=== PATIENT | female | born 1955 | race Caucasian/White ===

== ENCOUNTER 2017-06-15 10:42 | Day surgery (SDC) | payer BC ==
[~2017-06-15 10:42] MED LIST: Buffered Lidocaine 0.9% SYRIN* 5 ML/SYR SYRINGE INTRADERM ONE; Famotidine IV* 10 MG/ML 2 ML (20 mg) IV ONE; Famotidine IV* 10 MG/ML 2 ML (20 mg) ONE
[2017-06-15] MEDS ORDERED: Midazolam* 1 MG/ML 2 ML VIAL (2 MG) ONE (12:01)
[2017-06-15] MEDS ORDERED: fentaNYL* 50 MCG/ML 2 ML VIAL (100 MCG VIAL) ONE (12:01)
[2017-06-15] MEDS ORDERED: Bupivacaine 0.25% SDV* 30 ML ONE ×2 (13:07→14:15)
[2017-06-15] MEDS ORDERED: Acetaminophen TAB* 325 MG PO PRN (14:44)
[2017-06-15] MEDS ORDERED: oxyCODONE TAB* 5 MG TAB PO PRN (14:44)
[2017-06-15] MEDS ORDERED: Naloxone* 0.4 MG/ML 1 ML VIAL IV PRN (14:44)
[2017-06-15] MEDS ORDERED: DiMENhydriNATE IV* 50 MG/ML VIAL IV PUSH PRN (14:44)
[2017-06-15] MEDS ORDERED: Propofol* 10 MG/ML 20 ML BTL IV PUSH ONE (14:59)
[2017-06-15] MEDS ORDERED: Ondansetron INJ* 2 MG/ML VIAL ONE (14:59)
[2017-06-15] MEDS ORDERED: Lidocaine 2% PF * 5 ML VIAL ONE (14:59)
[2017-06-15] MEDS ORDERED: Ketorolac INJ* 30 MG/ML 1 ML VIAL ONE (14:59)
[2017-06-15 15:19] VITALS: BP 119/81
--- NOTE | 2017-06-16 05:07 | OP ---
DATE OF OPERATION: 06/15/17 [facility] DATE OF : 59 SURGEON: Gavino Alvarez MD [employer] ASSEMBLY SUPERVISOR: None. ANESTHESIOLOGIST: Dr. Joseph. ANESTHESIA: Local MAC. PRE-OP DIAGNOSIS: Right carpal tunnel syndrome. POST-OP DIAGNOSIS: Right carpal tunnel syndrome. OPERATIVE PROCEDURE: Right open carpal tunnel release. INDICATIONS: Jessy has had progressive disease. We have talked about risks and benefits. She wanted to proceed. ESTIMATED BLOOD LOSS: 2 mL. COMPLICATIONS: None. FINDINGS: As expected. DESCRIPTION OF PROCEDURE: Jessy was seen in the preoperative holding area. The correct side, site, and the procedure were identified. We came back to the operating room, where the arm was prepped and draped in the usual fashion. A time- out was performed. I began by making 2 to 3 cm incision in a standard location for an open carpal tunnel release. Dissection was carried down through the subcutaneous tissue and palmar fascia. The transverse carpal ligament was visualized and released just off the radial aspect of the hook of the hamate and the release was completed distally. Proximally the fascia and subcutaneous tissue was released and retracted volarly and ulnarly with the Zak retractor and then under direct visualization, the remainder of the transverse carpal ligament was released to a level several centimeters proximal to the wrist flexion crease. I then checked the decompression. There was absolutely no compression on the nerve. The wound was irrigated and the skin was closed with 4-0 nylon suture. I had injected 0.25% plain Marcaine prior to beginning the surgery. The wound was dressed with Xeroform, 4x4 and sterile Webril and an Iain bandage. Tourniquet was deflated and she was taken to the recovery room in stable condition. [id number]/[facility] #: [id number] MTDD
== END 2017-06-15 15:40 | disposition home or self-care (01) ==
LOC: OREAST 10:42
PROVIDERS: ATTEND Orthopaedic Surgery Hand Surgery
DX: G56.01 Carpal tunnel syndrome, right upper limb (principal); F17.200 Nicotine dependence, unspecified, uncomplicated; R05 Cough; K21.9 Gastro-esophageal reflux disease without esophagitis
CPT/HCPCS: J1885; J2250; J2405; J2704; J3010

== ENCOUNTER 2018-08-02 07:18 | Day surgery (SDC) | payer BC, OTHER ==
[~2018-08-02 07:18] MED LIST changes: -Buffered Lidocaine 0.9% SYRIN* 5 ML/SYR SYRINGE INTRADERM ONE; +Buffered Lidocaine 1% SYRIN* 1 ML/SYRINGE INTRADERM ONE; +Dexamethasone TAB* 4 MG PO ONE; +DiMENhydriNATE IV* 50 MG/ML VIAL IV PUSH PRN; -Famotidine IV* 10 MG/ML 2 ML (20 mg) ONE; +Lactated Ringers 1000 ML Bag* 1,000 ML IV SCH; +Naloxone* 0.4 MG/ML 1 ML VIAL IV PRN; +Ondansetron TAB* 4 MG PO ONE; +PROCHLORPERAZINE INJ 5 MG/ML 2 ML VIAL IV PRN; +fentaNYL* 50 MCG/ML 2 ML VIAL (100 MCG VIAL) IV PRN; +oxyCODONE/Acetamin 5/325 MG* TAB PO PRN
[2018-08-02] MEDS ORDERED: Midazolam* 1 MG/ML 5 ML VIAL (5 MG) ONE (07:48)
[2018-08-02] MEDS ORDERED: fentaNYL* 50 MCG/ML 2 ML VIAL (100 MCG VIAL) ONE (07:48)
[2018-08-02] MEDS ORDERED: Ondansetron ODT TAB* 4 MG ONE (07:55)
[2018-08-02] MEDS ORDERED: Dexamethasone TAB* 4 MG ONE (07:55)
[2018-08-02] MEDS ORDERED: Famotidine IV* 10 MG/ML 2 ML (20 mg) ONE (07:56)
[2018-08-02] MEDS ORDERED: Bupivacaine 0.25% SDV* 30 ML ONE (08:31)
[2018-08-02] MEDS ORDERED: Propofol* 10 MG/ML 20 ML BTL ONE (08:50)
[2018-08-02] MEDS ORDERED: Ketorolac INJ* 30 MG/ML 1 ML VIAL ONE (08:50)
[2018-08-02 10:15] VITALS: BP 125/73
--- NOTE | 2018-08-02 11:55 | OP ---
DATE OF OPERATION: 08/02/18 - [facility] DATE OF : 59. SURGEON: Gavino Alvarez MD. PIER MASTER: ARTUR Pittman. ANESTHESIOLOGIST: Dr. Sahu. ANESTHESIA: Local MAC. PRE-OP DIAGNOSES: 1. Left middle and ring trigger fingers. 2. Left ring finger A1 prabha tendon sheath mass. POST-OP DIAGNOSES: 1. Left middle trigger fingers. 2. Left ring trigger finger. 3. Left ring finger A1 prabha tendon sheath ganglion cyst. OPERATIVE PROCEDURE: 1. Left middle trigger finger release. 2. Left ring trigger finger release. 3. Left ring finger A1 prabha tendon sheath ganglion cyst excision. INDICATIONS: Jessy has aforementioned trigger fingers. She also has some on the right. We talked risks and benefits. She wanted to proceed with surgery. ESTIMATED BLOOD LOSS: 2 mL. COMPLICATIONS: None. FINDINGS: See above and below. DESCRIPTION OF PROCEDURE: Jessy was seen in the preoperative holding area. The correct side, site, and procedure were identified. We came back to the operating room, where the arm was prepped and draped in the usual fashion and a time-out was performed. The arm was exsanguinated with an Esmarch and the tourniquet was inflated to 250 mmHg. I had already anesthetized the operative area with 0.25% Marcaine. I made a longitudinal incision over the ring finger A1 prabha and another utilizing the distal palmar crease over the middle finger. Dissection was carried down, full thickness flaps were raised bluntly off both tendon sheaths. I then placed Ragnell retractors and off the A1 prabha of the ring finger, a ganglion cyst was noted. This was excised in its entirety and handed off as a specimen. I then incised the A1 prabha longitudinally along the radial third. The release was completed proximally and distally with the tenotomy scissors. Some tenosynovitis was excised. I then placed the Ragnell retractors in the middle finger wound. The A1 prabha was incised longitudinally in standard fashion. The release was completed distally and proximally with the tenotomy scissors. The tenosynovitis was excised. The wounds were irrigated out. Skin was closed with 4-0 nylon suture. The wounds were dressed with soft dressing and she was taken to recovery room in stable condition. [id number]/[facility] #: [id number] [facility]
== END 2018-08-02 10:32 | disposition home or self-care (01) ==
LOC: OREAST 07:18
PROVIDERS: ATTEND Orthopaedic Surgery Hand Surgery
DX: M65.332 Trigger finger, left middle finger (principal); M65.342 Trigger finger, left ring finger; M67.442 Ganglion, left hand; Z87.891 Personal history of nicotine dependence; K21.9 Gastro-esophageal reflux disease without esophagitis; E78.5 Hyperlipidemia, unspecified
CPT/HCPCS: 88304; A9270-GY; J1885; J2250; J2704; J3010; J8540

== ENCOUNTER 2018-09-11 07:44 | Emergency (ER) | payer BC, OTHER ==
--- OUTSIDE RECORDS SUMMARY | 2018-09-11 07:52 | XMS REPORT | Continuity of Care Document ---
:1955 External Reference #:[id number] Author Name Nati Jarquin Care Team Providers Name Role Phone Curtis Hay MD Primary Care Physician Unavailable Payers Date Identification Numbers Payment Provider Subscriber Policy Number: [id number] Benignomelissa Simental PayID: [id number] [address] [place] [address] Expires: 2018 Policy Number: [id number] Libby Jessy Simental PayID: [id number] [address] [address] [place] [address] Advance Directives Description No Information Available Problems Date Description Provider Status Onset: 04/21/2017 Bilateral carpal tunnel syndrome Gavino Alvarez MD Active Onset: 04/21/2017 Lesion of ulnar nerve Gavino Alvarez MD Active Onset: 04/21/2017 Acquired trigger finger Gavino Alvarez MD Active Onset: 08/08/2017 Acquired genu varum Edwar Garza MD Active Onset: 08/08/2017 Localized, primary osteoarthritis Edwar Garza MD Active Family History Description No Information Available Social History Type Date Description Comments Sex Unknown Lives With Spouse 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 ETOH Use Currently consumes alcohol Tobacco Use Start: Unknown Patient has never smoked Smoking Status Reviewed: 08/14/18 Patient has never smoked Exercise Type/Frequency Exercises regularly Allergies, Adverse Reactions, Alerts Date Description Reaction Status Severity Comments 2017 Penicillin Active Medications Medication Date Status Form Strength Qnty SIG Indications Ordering Provider Tramadol HCL Active Tablets 50mg 6tabs 1 tablet Gavino 019 by mouth MD Kim every 6 hours as needed pain Latanoprost Active Solution 0.005% Unknown 000 Prilosec 00/00/0 Active Packet 1 by Unknown 000 mouth every day Tramadol Hx Tablets 37.5-325mg 30tabs 1-2 tab Gavino Hydrochloride/ 018 - by mouth MD Kim Acetaminophen every 018 4-6 hours as needed Black Cohosh Hx Capsules 540mg daily Unknown 000 - 019 Vitamin B12 Hx Tablets 100mcg 1 by Unknown 000 - mouth every 018 day Calcium + D Hx Chewtabs 500-1000-40 every Unknown 000 - mg-Unt-mcg day as needed 018 Vitamin B-1 Hx Tablets 50mg 1 by Unknown 000 - mouth every 019 day Medications Administered in Office Medication Date Status Form Strength Qnty SIG Indications Ordering Provider Celestone 3 mg Administered Injection Gavino and 3mg Pranav Alvarez MD Injection Administered Injection Zaneb Hyaluronan Or 018 MD Greg Derivative, Euflexxa Per Dose Injection Administered Injection Nam F Hyaluronan Or 018 MD Gary Wallace, Euflexxa Per Dose Injection Administered Injection Zaneb Hyaluronan Or 018 MD Greg Derivative, Euflexxa Per Dose Celestone 3 mg Administered Injection Gavino and 3mg Pranav Alvarez MD Immunizations Description No Information Available Vital Signs Date Vital Result Comment 08/14/2018 9:06am Height 64 inches 5'4" Heart Rate 58 /min BP Systolic 124 mmHg BP Diastolic 76 mmHg Respiratory Rate 18 /min Body Temperature 97.6 F Pain Level 2 07/17/2018 1:03pm Height 64 inches 5'4" Weight 144.00 lb Heart Rate 64 /min BP Systolic 140 mmHg BP Diastolic 78 mmHg Pain Level 0 BMI (Body Mass Index) 24.7 kg/m2 06/18/2018 9:11am Height 64 inches 5'4" Weight 142.00 lb BP Systolic 118 mmHg BP Diastolic 80 mmHg Respiratory Rate 15 /min Body Temperature 96.0 F Pain Level 0 BMI (Body Mass Index) 24.4 kg/m2 06/15/2018 9:02am Height 64 inches 5'4" Weight 142.00 lb BP Systolic 112 mmHg BP Diastolic 78 mmHg Pain Level 4 BMI (Body Mass Index) 24.4 kg/m2 01/02/2018 11:09am Height 64 inches 5'4" Heart Rate 67 /min BP Systolic 122 mmHg BP Diastolic 60 mmHg Respiratory Rate 16 /min Body Temperature 97.8 F Pain Level 2 10/05/2017 8:51am Height 64 inches 5'4" Weight 150.00 lb Heart Rate 52 /min BP Systolic 130 mmHg BP Diastolic 80 mmHg Respiratory Rate 16 /min Body Temperature 97.5 F Pain Level 2 BMI (Body Mass Index) 25.7 kg/m2 09/28/2017 8:58am Height 64 inches 5'4" Weight 150.00 lb Heart Rate 68 /min BP Systolic 112 mmHg BP Diastolic 68 mmHg Respiratory Rate 12 /min BMI (Body Mass Index) 25.7 kg/m2 09/21/2017 8:47am Height 64 inches 5'4" Weight 145.00 lb BP Systolic 120 mmHg BP Diastolic 64 mmHg Respiratory Rate 20 /min Pain Level 5 BMI (Body Mass Index) 24.9 kg/m2 08/08/2017 2:31pm Height 64 inches 5'4" Weight 145.00 lb BP Systolic 126 mmHg BP Diastolic 70 mmHg Respiratory Rate 20 /min Pain Level 7 BMI (Body Mass Index) 24.9 kg/m2 07/19/2017 8:55am Height 64 inches 5'4" Weight 145.00 lb Heart Rate 54 /min BP Systolic Sitting 152 mmHg LA reg cuff BP Diastolic Sitting 96 mmHg LA reg cuff Pain Level 1 BMI (Body Mass Index) 24.9 kg/m2 06/28/2017 8:47am Height 64 inches 5'4" Weight 137.00 lb Heart Rate 63 /min Respiratory Rate 14 /min Body Temperature 97.5 F Pain Level 3 BMI (Body Mass Index) 23.5 kg/m2 06/06/2017 2:50pm Height 64 inches 5'4" Weight 137.00 lb Respiratory Rate 12 /min Pain Level 0 BMI (Body Mass Index) 23.5 kg/m2 04/21/2017 10:31am Height 64 inches 5'4" Weight 137.00 lb Heart Rate 68 /min Respiratory Rate 14 /min Body Temperature 97.7 F Pain Level 0 BMI (Body Mass Index) 23.5 kg/m2 2017 9:26am Height 64 inches 5'4" Weight 137.00 lb BP Systolic 111 mmHg BP Diastolic 71 mmHg Respiratory Rate 16 /min Body Temperature 97.4 F BMI (Body Mass Index) 23.5 kg/m2 Results Test Date Facility Test Result H/L Range Note Laboratory test 08/02/2018 [facility] SEE RESULT 1 , [address] [place] [address] [phone] 1 [id number] 2 SEE RESULT BELOW Name: MARYJESSY Greenberg : [address]: Gavino Alvarez MD Acct: [id number] Unit: [id number] AGE: 63 Location: [facility] Re08/02/18 SEX: F Status: LISA ALEGRE SPEC: [id number] GINA: 08/02/[address] [facility] [address]: Gavino Alvarez MD REQ: [id number] RECD: 08/02/18 STATUS: SOUT _ ORDERED: LEVEL 3 COMMENTS: [id number] FINAL DIAGNOSIS Left ring finger, excision: -- Ganglion cyst. PRE-OPERATIVE DIAGNOSIS Trigger finger left long and ring finger GROSS DESCRIPTION The specimen is received in formalin labeled, Left Ring Finger Ganglion, and consists of a 0.5 x 0.3 x 0.3 cm thmoas-pink irregular fibrous tissue fragment. The cut surface is cystic with scant transparent mucoid material. The specimen is inked, bisected and submitted entirely in one cassette. Signed by and Reported on: Nila Julien MD 08/03/18 1228 END OF REPORT DEPARTMENT OF PATHOLOGY, [address] [place] [address] Emeka Mejia M.D. Director [facility] # [id number] Procedures Date Code Description Status 08/02/2018 27616 Excision Tendon Sheath Ganglion /Or Joint Capsule Hand Or Completed Finger 08/02/2018 09053 Excision Tendon Sheath Ganglion /Or Joint Capsule Hand Or Completed Finger 08/02/2018 97647 Trigger Finger Release Incision / Tendon Sheath Incision Completed 08/02/2018 35243 Trigger Finger Release Incision / Tendon Sheath Incision Completed 01/02/2018 89089 Inject Tendon Sheath Or Ligament Aponeurosis Eg Plantar Completed Fascia 10/05/2017 16803 Inject/Drain Joint/Bursa Major W/O US Completed 09/28/2017 28513 Inject/Drain Joint/Bursa Major W/O US Completed 09/21/2017 24559 Inject/Drain Joint/Bursa Major W/O US Completed 07/19/2017 63307 Inject Tendon Sheath Or Ligament Aponeurosis Eg Plantar Completed Fascia 06/15/2017 80119 Carpal Tunnel Release Completed Encounters Type Date Location Provider Dx Diagnosis Office Visit 06/18/2018 [facility] Cali, M20.5x1 Other deformities 9:00a [facility] of toe(s) (acquired), right foot Office Visit 06/15/2018 [facility]opedic Edwar Garza MD M65.342 Trigger finger , 8:45a [facility] left ring finger M65.332 Trigger finger, left middle finger Office Visit 01/02/2018 10:30a Orthopedic Gavino M65.342 Trigger finger, [facility] Kim left ring finger [facility] Office Visit 08/08/2017 2:30p [facility]opedic Edwar Garza, M17.11 Unilateral [facility] osteoarthritis, right knee M21.161 Varus deformity, not elsewhere classified, right knee Office Visit 04/21/2017 9:45a [facility] Gavino G56.03 Carpal tunnel [facility] syndrome, [facility] bilateral upper limbs G56.22 Lesion of ulnar nerve, left upper limb M65.341 Trigger finger, right ring finger Office Visit 2017 9:00a [facility] Gavino G56.03 Carpal tunnel [facility] syndrome, [facility] bilateral upper limbs G56.23 Lesion of ulnar nerve, bilateral upper limbs Plan of Treatment Future Appointment(s):12/18/2018 8:15 am - Gavino Alvarez MD at [facility]12/24/2018 9:30 am - Gavino Alvarez MD at [facility]08/14/2018 - Gavino Alvarez, MDM65.341 Trigger finger, right ring gyakyfE55.331 Trigger finger, right middle dhorvhL03.342 Trigger finger, left ring fingerFollow up:Follow up: 7-10 days before ggjyxurH67.332 Trigger finger, left middle finger
[2018-09-11 07:59] VITALS: BP 145/94
--- NOTE | 2018-09-11 08:13 | UC ---
Skin Complaint HPI - HPI Summary HPI Summary: WOKE UP LAST NIGHT AND DISCOVERED A TICK ATTACHED TO THE BACK OF HER LEFT EAR. REMOVED IT ENTIRELY BY USING HIS FINGER TO SPIN AROUND UNTIL IT DETACHED. TICK WAS NOT ENGORGED. PATIENT BELIEVES IT ATTACHED SOMETIME YESTERDAY. - History of Current Complaint Chief Complaint: UCSkin Time Seen by Provider: 09/11/18 07:58 Stated Complaint: TICK BITE Hx Obtained From: Patient Onset/Duration: Sudden Onset, Lasting Hours, Still Present Onset Severity: Mild Current Severity: Mild Pain Intensity: 6 Pain Scale Used: 0-10 Numeric Location: Ear (Left) Character: Redness, Painful Aggravating Factor(s): Touch Alleviating Factor(s): Nothing Associated Signs & Symptoms: Positive: Negative - Allergy/Home Medications Allergies/Adverse Reactions: Allergies Allergy/AdvReac Type Severity Reaction Status Date / Time Penicillins Allergy Intermediate Unknown Verified 09/11/18 07:59 Reaction Details Home Medications: Home Medications NK [No Home Medications Reported] 09/11/18 [History Confirmed 09/11/18] PMH/Surg Hx/FS Hx/Imm Hx Previously Healthy: Yes - Surgical History Surgical History: Yes Surgery Procedure, Year, and Place: RIGHT BREAST BIOPSY-18 YRS AGO- [facility]. PILONDIAL CYST REMOVED-40 YRS AGO. EXPLORATORY- APPENDECTOMY-~35 YRS AGO - Family History Known Family History: Positive: Non-Contributory - Social History Alcohol Use: Daily Alcohol Amount: 2 DRINKS DAILY Substance Use Type: None Smoking Status (MU): Former Smoker Amount Used/How Often: 2 CIGARETTES PER MONTH Have You Smoked in the Last Year: Yes Review of Systems All Other Systems Reviewed And Are Negative: Yes Constitutional: Positive: Negative Skin: Positive: Other - ERYTHEMA AT SITE OF TICK ATTACHMENT Respiratory: Positive: Negative Cardiovascular: Positive: Negative Gastrointestinal: Positive: Negative Physical Exam Triage Information Reviewed: Yes Appearance: Well-Appearing, No Pain Distress, Well-Nourished Vital Signs: Initial Vital Signs Temp 98.7 F 09/11/18 07:51 Pulse 54 09/11/18 07:51 Resp 18 09/11/18 07:51 BP 145/94 09/11/18 07:51 Pulse Ox 99 09/11/18 07:51 Vital Signs Reviewed: Yes Eyes: Positive: Conjunctiva Clear ENT: Positive: Hearing grossly normal, Other - LEFT EAR SUPERIOR PART OF POSTERIOR PINNA ERYTHEMATOUS AND SLIGHTLY TENDER. NO RETAINED TICK Neck: Positive: Supple Respiratory: Positive: No respiratory distress, No accessory muscle use Cardiovascular: Positive: Pulses Normal Abdomen Description: Positive: Soft Musculoskeletal: Positive: No Edema Neurological: Positive: Alert Psychological: Positive: Age Appropriate Behavior Skin: Positive: Other - ERYTHEMA AT SITE OF TICK ATTACHMENT LEFT POSTERIOR PINNA Course/Dx - Course Course Of Treatment: COUNSELED PT EXTENSIVELY ON LOW RISK OF BART LYME DISEASE FROM THIS TICK. TICK WAS NOT ENGORGED SO UNLIKELY TO HAVE BEEN ATTACHED FOR REQUISITE AMOUNT OF TIME TO TRANSMIT DISEASE. ADVISED SHE IT ARCHITECT A TICK TWISTER TO HELP REMOVE ANY FUTURE TICKS. KEEP THE AREA CLEAN AND BE VIGILANT OF SX OVER THE NEXT 4-6 WEEKS. PT DOES NOT MEET CRITERIA FOR PROPHYLAXIS WITH DOXY. ALL QUESTIONS ANSWERED AND PT COMFORTABLE WITH CAREFUL OBSERVATION AT HOME. - Diagnoses Provider Diagnosis: Tick bite of ear Discharge - Sign-Out/Discharge Documenting (check all that apply): Patient Departure All imaging exams completed and their final reports reviewed: No Studies - Discharge Plan Condition: Stable Disposition: HOME Patient Education Materials: Tick Bite (ED) Referrals: Curtis Hay MD [Primary Care Provider] - If Needed Additional Instructions: The Infectious Disease Society of [place] (IDSA) does not generally recommend antimicrobial prophylaxis for prevention of Lyme disease after a recognized tick bite. However, in areas that are highly endemic for Lyme disease, a single dose of doxycycline may be offered to adult patients (200 mg) who are not and to children older than 8 years of age (4 mg/kg up to a maximum dose of 200 mg) when all of the following circumstances exist: CRITERIA FOR RECEIVING PROPHYLACTIC TREATMENT FOR LYME DISEASE 1) TICK ATTACHED FOR AT LEAST 36 HRS 2) TICK IS AN ADULT OR [place] DEER TICK 3) YOU LIVE IN AN AREA WHERE LYME DISEASE IS PREVALENT (i.e., [place], [place], [place], , [place] , [place], [place], [place], [place], [place], [place], [place], [place], [place]) 4) YOU HAVE NO CONTRAINDICATION TO THE MEDICATION (DOXYCYCLINE) 5) PROPHYLAXIS IS BEGUN WITHIN 72 HRS OF TICK REMOVAL SINCE YOU DO NOT MEET ALL THESE CRITERIA THERE IS NO NEED TO GIVE YOU PROPHYLACTIC ANTIBIOTICS. YOUR CHANCES OF DEVELOPING LYME DISEASE FROM THIS TICK ARE EXTREMELY SMALL. HOWEVER, 1 TICK MEANS THERE MAY HAVE BEEN OTHER TICKS OF WHICH YOU WEREN'T AWARE. SO BE VIGILANT OF YOUR SYMPTOMS AND DON'T HESITATE TO GET SEEN AGAIN IF YOU DEVELOP UNEXPLAINED FEVER, HEADACHE, JOINT PAIN, BODY ACHES, RASH OR ANY OTHER CONCERNING SYMPTOMS. Antibiotic treatment following a tick bite is not recommended as a means to prevent anaplasmosis, babesiosis, ehrlichiosis, or [place] spotted fever. There is no evidence this practice is effective, and it may simply delay onset of disease. Instead, persons who experience a tick bite should be alert for symptoms suggestive of tickborne illness and consult a physician if fever, rash, headache or other symptoms of concern develop. - Billing Disposition and Condition Condition: STABLE Disposition: Home
== END 2018-09-11 08:26 | disposition home or self-care (01) ==
LOC: UCEAST 07:44
DX: S00.462A Insect bite (nonvenomous) of left ear, initial encounter (principal); L53.9 Erythematous condition, unspecified; W57.XXXA Bitten or stung by nonvenomous insect and other nonvenomous arthropods, initial encounter; Y92.9 Unspecified place or not applicable; Z88.0 Allergy status to penicillin; Z87.891 Personal history of nicotine dependence
CPT/HCPCS: 99211; G0463

== ENCOUNTER 2020-06-09 08:07 | Observation (INO) ==
[~2020-06-09 08:07] MED LIST changes: +Buffered Lidocaine 1% SYRIN 1 ml INTRADERM ONE; -Buffered Lidocaine 1% SYRIN* 1 ML/SYRINGE INTRADERM ONE; +Dexamethasone IV 4 MG/ML VIAL 1 ml VIAL IV SLOW PU ONE; -Dexamethasone TAB* 4 MG PO ONE; -DiMENhydriNATE IV* 50 MG/ML VIAL IV PUSH PRN; +Famotidine IV 10 MG/ML 2 ml VIAL (20 mg) IV ONE; -Famotidine IV* 10 MG/ML 2 ML (20 mg) IV ONE; -Lactated Ringers 1000 ML Bag* 1,000 ML IV SCH; +Lactated Ringers 1000 ml BAG 1,000 ML IV SCH; -Naloxone* 0.4 MG/ML 1 ML VIAL IV PRN; -Ondansetron TAB* 4 MG PO ONE; -PROCHLORPERAZINE INJ 5 MG/ML 2 ML VIAL IV PRN; -fentaNYL* 50 MCG/ML 2 ML VIAL (100 MCG VIAL) IV PRN; -oxyCODONE/Acetamin 5/325 MG* TAB PO PRN
[2020-06-09] MEDS ORDERED: Ketamine HCL 50 mg/ml 10 ml VIAL (500 MG) ONE (08:28)
[2020-06-09] MEDS ORDERED: Midazolam 2 mg/2 ml VIAL 1 mg/ml 2 ml VIAL (2 mg) ONE ×2 (08:29→09:32)
[2020-06-09] MEDS ORDERED: Lidocaine 2% PF 5 ML VIAL ONE ×2 (08:30→09:32)
[2020-06-09] MEDS ORDERED: Dexamethasone IV 4 MG/ML VIAL 1 ml VIAL ONE (08:30)
[2020-06-09] MEDS ORDERED: Ondansetron 4 mg VIAL 2 MG/ML 2 ml VIAL ONE (08:30)
[2020-06-09] MEDS ORDERED: Phenylephrine IV 10 MG/ML 1 ml VIAL ONE (08:30)
[2020-06-09] MEDS ORDERED: ceFAZolin 2 GM PREMIX 2 GM/50 ML BAG ONE (08:39)
[2020-06-09] MEDS ORDERED: Famotidine IV 10 MG/ML 2 ml VIAL (20 mg) ONE (08:39)
[2020-06-09] MEDS ORDERED: ROPIVACAINE 5 MG/ML 30 ML BTL (0.5%) ONE ×2 (09:11→09:33)
[2020-06-09] MEDS ORDERED: fentaNYL 100 mcg/2 ml 50 MCG/ML VIAL ONE ×2 (09:32→13:53)
[2020-06-09] MEDS ORDERED: Propofol 10 MG/ML 20 ML BTL ONE (09:34)
[2020-06-09] MEDS ORDERED: fentaNYL 250 mcg/5 ml 50 MCG/ML 5 ml VIAL (250 MCG) ONE (09:34)
[2020-06-09] MEDS ORDERED: Clindamycin 900 MG/D5W BAG 900 MG/50 ML BAG IVPB ONE (10:29)
[2020-06-09] MEDS ORDERED: EPHEDrine (Pressors) 50 MG/ML VIAL ONE (10:52)
[2020-06-09] MEDS ORDERED: Ondansetron 4 mg VIAL 2 MG/ML 2 ml VIAL IV PRN ×2 (11:56→12:14)
[2020-06-09] MEDS ORDERED: HYDROmorphone 1 MG/1 ML SYRINGE IV PRN (11:56)
[2020-06-09] MEDS ORDERED: Naloxone 0.4 mg VIAL 0.4 mg/ml 1 ml VIAL IV PRN (11:56)
[2020-06-09] MEDS ORDERED: Ondansetron ODT 4 mg TAB 4 MG TAB PO PRN (12:14)
[2020-06-09] MEDS ORDERED: diPHENhydraMINE 25 mg TAB PO PRN (12:14)
[2020-06-09] MEDS ORDERED: Morphine 2 MG/ML SYRINGE IV PRN (12:14)
[2020-06-09] MEDS ORDERED: Magnesium Hydroxide LIQ 30 ML UDC PO PRN (12:14)
[2020-06-09] MEDS ORDERED: diPHENhydraMINE IV 50 MG/ML 1 ml VIAL (BENADRYL) IV PRN (12:14)
[2020-06-09] MEDS ORDERED: Lactulose 30 ml UDC PO PRN (12:14)
[2020-06-09] MEDS: fentaNYL 100 mcg/2 ml 50 MCG/ML VIAL IV PRN ×2 (13:54→14:14)
[2020-06-09] MEDS: Lactated Ringers 1000 ml BAG 1,000 ML IV SCH (15:02)
[2020-06-09] MEDS: Clindamycin 600 MG/D5W BAG 600 MG/50 ML BAG IV SCH (19:53)
[2020-06-09] MEDS: Magnesium Hydroxide LIQ 30 ML UDC PO SCH (19:55)
[2020-06-10] MEDS: Clindamycin 600 MG/D5W BAG 600 MG/50 ML BAG IV SCH ×2 (03:33→11:25)
[2020-06-10] MEDS: Lactated Ringers 1000 ml BAG 1,000 ML IV SCH (03:35)
[2020-06-10 06:37] LABS: Hematocrit 34 % (35-47); Hemoglobin 11.7 g/dL (12.0-16.0); Mean Platelet Volume 7.1 fL (7.4-10.4); Platelet Count 187 10^3/uL (150-450)
[2020-06-10 06:54] LABS: BUN/Creatinine Ratio 13.6 (8-20); Calcium 8.7 mg/dL (8.6-10.3); EGFR African American 78.5 (>60); EGFR Non-African American 64.9 (>60); Potassium 4.5 mmol/L (3.5-5.0)
[2020-06-10] MEDS ORDERED: Vitamin THERAPEUTIC TAB PO SCH (09:00)
[2020-06-10] MEDS: Magnesium Hydroxide LIQ 30 ML UDC PO SCH (09:26)
[2020-06-10 11:41] VITALS: BP 116/62
== END 2020-06-10 13:40 | disposition home or self-care (01) ==
LOC: SSU 08:07 → OR 08:07
PROVIDERS: ADMIT Orthopaedic Surgery Adult Reconstructive Orthopaedic Surgery; ATTEND Orthopaedic Surgery Adult Reconstructive Orthopaedic Surgery

== ENCOUNTER 2022-03-04 11:15 | Inpatient (IN) ==
[~2022-03-04 11:15] MED LIST changes: -Dexamethasone IV 4 MG/ML VIAL 1 ml VIAL IV SLOW PU ONE
[2022-03-04] MEDS ORDERED: Famotidine IV 10 MG/ML 2 ml VIAL (20 mg) ONE (11:40)
[2022-03-04] MEDS ORDERED: Clindamycin 900 MG/D5W BAG 900 MG/50 ML BAG IVPB ONE (11:40)
[2022-03-04] MEDS ORDERED: Midazolam 5 mg/5 ml VIAL 1 mg/ml 5 ml VIAL (5 mg) ONE (12:48)
[2022-03-04] MEDS ORDERED: Ondansetron 4 mg VIAL 2 MG/ML 2 ml VIAL ONE (12:48)
[2022-03-04] MEDS ORDERED: Dexamethasone IV 4 MG/ML VIAL 1 ml VIAL ONE (12:48)
[2022-03-04] MEDS ORDERED: fentaNYL 100 mcg/2 ml 50 MCG/ML VIAL ONE ×3 (12:48→18:12)
[2022-03-04] MEDS ORDERED: ROPIVACAINE 5 MG/ML 30 ML BTL (0.5%) ONE (13:41)
[2022-03-04] MEDS ORDERED: Lidocaine 1% MPF 5 ML VIAL ONE (13:45)
[2022-03-04] MEDS ORDERED: Ropivacaine 5 MG/ML 20 ML VIAL 0.5% (100 MG) ONE (14:09)
[2022-03-04] MEDS ORDERED: Sterile Water for Inj 10 ML ONE (15:00)
[2022-03-04] MEDS ORDERED: HYDROmorphone 0.5 MG/0.5 ML SYRINGE ONE ×4 (15:35→19:25)
[2022-03-04] MEDS ORDERED: Lactulose 30 ml UDC PO PRN (16:12)
[2022-03-04] MEDS ORDERED: Ondansetron 4 mg VIAL 2 MG/ML 2 ml VIAL IV PRN ×2 (16:12→16:35)
[2022-03-04] MEDS ORDERED: Magnesium Hydroxide LIQ 30 ML UDC PO PRN (16:12)
[2022-03-04] MEDS ORDERED: Morphine 2 MG/ML SYRINGE IV PRN (16:12)
[2022-03-04] MEDS ORDERED: Ondansetron ODT 4 mg TAB 4 MG TAB PO PRN (16:12)
[2022-03-04] MEDS ORDERED: Naloxone 0.4 mg VIAL 0.4 mg/ml 1 ml VIAL IV PRN ×2 (16:35→18:37)
[2022-03-04] MEDS ORDERED: Lactated Ringers 1000 ml BAG 1,000 ML IV SCH (17:00)
[2022-03-04] MEDS ORDERED: Clindamycin 600 MG/D5W BAG 600 MG/50 ML BAG IV SCH (17:00)
[2022-03-04] MEDS: fentaNYL 100 mcg/2 ml 50 MCG/ML VIAL IV PRN ×5 (17:27→18:14)
[2022-03-04] MEDS: HYDROmorphone 1 MG/1 ML SYRINGE IV PRN ×5 (18:39→20:08)
[2022-03-04] MEDS ORDERED: Latanoprost 0.005% 2.5 ml BTL BOTH EYES SCH (21:00)
[2022-03-04] MEDS: Magnesium Hydroxide LIQ 30 ML UDC PO SCH (22:06)
[2022-03-04] MEDS: Clindamycin 600 MG/D5W BAG 600 MG/50 ML BAG IV SCH (23:49)
[2022-03-05 06:31] LABS: Hematocrit 35 % (35-47); Hemoglobin 11.5 g/dL (12.0-16.0); Mean Platelet Volume 7.1 fL (7.4-10.4); Platelet Count 207 10^3/uL (150-450)
[2022-03-05 06:52] LABS: Calcium 8.6 mg/dL (8.6-10.3); Potassium 4.8 mmol/L (3.5-5.0); eGFR CKD-EPI 74.4 (>60)
[2022-03-05] MEDS: Clindamycin 600 MG/D5W BAG 600 MG/50 ML BAG IV SCH ×2 (07:36→14:50)
[2022-03-05] MEDS: Magnesium Hydroxide LIQ 30 ML UDC PO SCH (08:28)
[2022-03-05] MEDS ORDERED: Vitamin THERAPEUTIC TAB PO SCH (09:00)
[2022-03-05 15:03] VITALS: BP 147/82
== END 2022-03-05 16:40 | disposition home or self-care (01) | DRG 302 ==
LOC: AA 11:44 → SSU 20:49
PROVIDERS: ADMIT Orthopaedic Surgery Adult Reconstructive Orthopaedic Surgery; ATTEND Orthopaedic Surgery Adult Reconstructive Orthopaedic Surgery